=== PATIENT | male | born 1995 | race African-American/Black ===

== ENCOUNTER 2020-09-29 04:07 | Emergency (ER) | payer MEDICAID ==
[~2020-09-29] VITALS: Ht 190.5 cm; Wt 86.2 kg
[2020-09-29 07:58] VITALS: BP 129/82
== END 2020-09-29 09:30 | disposition home or self-care (01) ==
LOC: ER 04:10 → EDBD 04:10 → ER 09:30
DX: J06.9 Acute upper respiratory infection, unspecified (principal); F41.9 Anxiety disorder, unspecified; Z20.828 Contact with and (suspected) exposure to other viral communicable diseases
CPT/HCPCS: 36415; 71045; 87426